=== PATIENT | female | born 2000 | race African-American/Black ===

== ENCOUNTER 2022-12-04 08:23 | Inpatient (IN) | payer OTHER, SELFPAY ==
[2022-12-04] VITALS (19 sets, daily range): BP systolic 61–123; BP diastolic 35–94; PULSE 76–106; RESP 18; TEMP 36.2–36.9; O2SAT 100
[2022-12-04 09:38] LABS: Basophils Absolute Auto 0.1 K/mm3 (0.0-0.1); Basophils Percent Auto 0.5 % (0.2-1.2); Eosinophils Absolute Auto 0.1 K/mm3 (0-0.3); Eosinophils Percent Auto 0.5 % (0-4.4); Hematocrit 33.9 % (37.0-47.0); Hemoglobin 10.9 g/dL (12.0-15.0); Immature Granulocyte Absolute 0.09 K/mm3 (0.00-0.031); Immature Granulocyte Percent A 0.5 % (0-0.5); Lymphocytes Absolute Auto 1.97 K/mm3 (0.9-3.2); Lymphocytes Percent Auto 11.6 % (18.3-44.2); Mean Corpuscular HGB Conc 32.2 g/dl (32-36); Mean Corpuscular Hemoglobin 30.8 pg (26-34); Mean Corpuscular Volume 95.8 fl (80-100); Mean Platelet Volume 10.8 fl (7.4-10.4); Monocytes Absolute Auto 0.8 K/mm3 (0.1-0.6); Monocytes Percent Auto 4.9 % (2.6-8.5); Neutrophils Absolute Auto 13.9 K/mm3 (1.3-6.7); Platelet Count Result 252 k/mm3 (150-375); Red Blood Count 3.54 M/mm3 (4.2-5.4)
--- NOTE | 2022-12-04 10:07 | LDADM ---
This patient, Opal Zeng, was admitted to Labor/Delivery/Recovery 104 on 12/04/22 at 08:23. Plans for labor, pain management and were discussed with patient. Patient/family oriented to hospital policies and general routines including ID bracelet, bed and alarms, visiting hours, pain management, procedures, bathroom and other care routines, personal items, smoking policy, room service/diet and guest tray routines, infant security routines, and visiting hours. Patient/Family are encouraged to report perceived risks to care and to ask questions if they do not understand what they are told or what they should do. See OBIX for further documentation.
--- NOTE | 2022-12-04 11:52 | WPDHPUPDATE1 ---
History and Physical Update Update Date/Time: 12/04/22 11:52 22 yo G1 at 38w6d who presents in labor. Pt also reports some leakage of fluid. She reports good movement History and Physical has been reviewed, including an updated exam of the patient. There are NO changes in the patient's condition. Risks, benefits, and alternatives have been discussed and questions answered. Patient agrees to proceed with procedure. A/P: 22 yo at 38w6d who presents in labor admit to L&D routine admission orders Rh + GBS neg FHT cat 1 regular contractions cvx 4-5 cm expectant management
--- NOTE | 2022-12-04 11:56 | PM.OBPNLAB ---
Pain Control Date/time seen: 12/04/22 11:56 Pain control: tolerating well Pelvic Exam Dilation (cm): 6 Effacement (%): 70 station: -2 Amniotic membrane status: Ruptured Comments: meconium stained fluid Contractions Contraction frequency: 5 Status status: Category l Assessment and Plan Assessment: active labor Plan: continuous present management
[2022-12-04] MEDS: OXYTOCIN 30 UNITS/NS 500 ML 30 UNITS/500 ML BAG IV CONT (16:00)
[2022-12-04] MEDS: LACTATED RINGERS 1,000 ML 125 ML IV CONT (16:00)
[2022-12-04 16:51] LABS: Rapid Plasma Reagin Non-Reactive (NonReactive)
[2022-12-04] MEDS: ONDANSETRON INJ 4 MG/2 ML VIAL IV PUSH (17:08)
--- NOTE | 2022-12-04 18:45 | PM.OBPRVD ---
OB - Delivery Note Procedure Procedure: Patient pushed for a spontaneous vaginal delivery. The fetus was delivered atraumatically and placed on the maternal abdomen. The cord was clamped and cut after 1 minute of life. The cord was double clamped and cut and a segment of cord was collected for cord gases. Cord blood was collected for blood type and Coomb's testing. The placenta delivered spontaneously and was noted to be intact. The perineum was inspected and there were no lacerations noted. The uterus was firm and good hemostasis was noted. The patient and fetus were stable in the delivery room. Induction method: None Delivery augmentation: Rupture of Membranes Delivery monitor: External FHT Route of delivery: Episiotomy description: None Laceration Description: None Specimen: No Quantitative Blood Loss (ml): 200 Anesthesia type: None Disposition: Floor () Complications: No immediate complications Baby Date of : 12/04/22 Time of : 18:35 Weeks of gestation at delivery: 38 Infant gender: Male Weight (pounds): 6 Weight (ounces): 12 presentation: vertex position: Right Occiput Anterior Placenta delivery description: Spontaneous Cord Vessel Description: 3 Vessels score one minute: 8 score five minutes: 9 AMG Delivery Billing Delivery Delivery: Delivery Charge
[2022-12-04] MEDS: OXYTOCIN 10 UNITS/ML VIAL (18:52)
[2022-12-04] MEDS: OXYTOCIN 10 UNITS/ML VIAL 20 UNITS (18:52)
--- NOTE | 2022-12-04 19:27 | PC.NURSE ---
IV Pitocin not given. IV infiltrated. Orders to give IM Pitocin and to gold restarting IV for now.
[2022-12-04] MEDS: WITCH HAZEL 40 PADS 1 PAD TOPICAL (20:47)
[2022-12-04] MEDS: BENZOCAINE 20% AER SPR (*SP) 56 GM CAN 1 SPRAY TOPICAL (20:47)
--- NOTE | 2022-12-04 21:10 | PC.NURSE ---
Patient transferred to post room #285 via ( W/C ). Support person present. Oriented to unit, room, information board, rooming in, admission packet and security measures. Patient verbalizes understanding.
[2022-12-05] VITALS (7 sets, daily range): BP systolic 99–113; BP diastolic 55–65; PULSE 82–93; RESP 16–18; TEMP 36.7–37.1; O2SAT 99–100
[2022-12-05 06:01] LABS: Hematocrit 32.3 % (37.0-47.0); Hemoglobin 10.2 g/dL (12.0-15.0)
[2022-12-05] MEDS: MULTIVIT/MIN/PREN/FOL AC/IRON TABLET 1 TAB PO (10:59)
--- NOTE | 2022-12-05 11:15 | P.PNOB_ITS ---
OB - PN: Subj Subjective Date/time seen: 12/05/22 11:15 Patient comments: no complaints, pain well controlled and tolerating diet [place] feeding status: exclusively breast feeding Narrative: patient doing well this AM. No complaints. Pain is well controlled. She reports minimal bleeding. She is ambulating and voiding without difficulty. She does report some coccyx pain. She is tolerating PO. She denies N/V, fever, chills. OB - PN: Obj Data Labs 12/05/22 04:53 Labs: Laboratory Results - last 24 hr 12/04/22 12/04/22 12/05/22 09:18 09:18 04:53 Hgb 10.2 L Hct 32.3 L RPR Non-reactive PIERO, IgG Interpret Not Performed PIERO, Poly Interpret Negative OB - PN A/P Plan day: 1 Plan: routine care Comments: patient doing well H/H stable plan for infant circumcision today. Risks, benefits, alternatives discuss. pt consented. continue routine care Time Spent With Patient Time: Total time spent is greater than 50% in coordination of care (as documented) at patient's floor/unit and/or counseling patient: Time with patient: less than 15 minutes Review of Systems Review of Systems: All systems reviewed & are unremarkable except as noted in HPI and below Exam Const: General: comfortable and no acute distress Resp: Effort & Inspection: normal respiratory effort Cardio: Rate: regular rate GI: GI Palp: Yes Soft to palpation and No Tenderness to palpation present (GI) Auscultation: normal bowel sounds Other: fundus firm and below umbilicus. Psych: Affect: normal affect
--- NOTE | 2022-12-05 15:53 | PC.NURSE ---
[id number] Introductions were made, then consulted with patient to assess needs related to . Mother led the conversation with her?plans to feed?her infant and the?experience so far. Resources provided for inpatient and outpatient services with the mom/baby guide. Mother voiced understanding of information and received offer for assistance. Mother works well with her infant with encouragement and education. Encouraged understanding of the benefits of skin to skin (demonstrating unwrapping infant and placing upright on her chest), stimulating with massage touch, changing positions to encourage wakefulness, how to watch for early feeding cues, responsive feeding, feeding on demand (aiming for 8-12 times in 24 hours, about every 2-3 hours), milk production, building/maintaining a milk supply, duration of feeding, signs of adequate intake/output and how to record on the feeding sheet. Reviewed positioning and ear, shoulder, hip alignment, supporting the breast to facilitate a deep latch, asymmetrical latch (off-center), leading with the chin with a big, open, wide gape and body close to mother. latched optimally to the left breast in [football/cross cradle/laid-back] position. Education given to mother of how to visualize suck/swallow ratios and listen for drinking at the breast. Infant was [able/unable] to maintain latch without discomfort to mother. Nipple care reviewed with optimal latch and good positioning. Reminding mother of comfort measures of healing with a warm and wet washcloth to rinse breast, then leave open to air-dry as needed. Reviewed good handwashing when or touching the breast/nipples to prevent infection. After 15 minutes infant detached from the breast and was placed skin to skin. Once feed cues were visualize infant was latched optimally to the right breast and effectively breastfed with mother denying pain and voiced visualizing and hearing swallowing. Resources used to facilitate learning were used with the tool, mom and baby guide. Mother voiced understanding of skin to skin, stimulating with massage touch, responsive feedings, hand expressed colostrum, talking to infant to encourage if it has been 2 -2.5 hours since the start of the last , to call if infant does not latch, or if there is discomfort with . Resources provided for inpatient/outpatient the mom/baby guide. Parents voiced understanding of information, demonstrated learning and will call if there is a request for assistance. Reported to the primary RN. [id number] Purposefully rounded to consult with needs. Mother had skin to skin. Once feeding cues were visualized infant was optimally latched to the right breast using football positioning with minimal assistance from RN. Mother denied any discomfort. Good suck/swallow ratios were heard and visualized. Mother voiced understanding of skin to skin, stimulating with massage touch, responsive feedings, hand expressed colostrum, talking to infant to encourage if it has been 2 -2.5 hours since the start of the last , to call if infant does not latch, or if there is discomfort with . Reported to the Primary RN.
--- NOTE | 2022-12-05 17:39 | PC.NURSE ---
Pt was given Motrin at 1059; RN discovered pill on floor at 1220; pill was wasted. New Motrin was pulled at 1220 and taken to pt. RN discovered at 1730 that pt never took pill; RN wasted pill in [facility].
--- NOTE | 2022-12-06 07:05 | PC.NURSE ---
Patient to view the discharge video Mother & Baby Care, The First Two Weeks online. Patient was given the opportunity and encouraged to ask questions. Patient verbalized understanding of information shared and has been given the mother/baby guide for home reference.
--- NOTE | 2022-12-06 07:11 | PM.OBDSVD ---
DS: Admitting Diagnosis Discharge Date 12/06/22 Admitting Diagnosis intrauterine at term DS: Discharge Diagnosis Discharge Diagnosis (1) Supervision of high risk , unspecified, third trimester: Code(s): O09.93 - Supervision of high risk , unspecified, third trimester Status: Acute OB - DS: Summary OB Procedures : None OB Procedures Intrapartum: Spontaneous Vag Delivery OB Procedures: : None Peripartum Data Delivery Method: Natural Vaginal Laceration Description: None complications: none Status at Discharge Functional status at discharge: independent ambulation Overall status at discharge: patient is back to baseline Time Spent with Patient Time attestation: Total time spent providing and/or coordinating discharge services: Time spent: Less than 30 minutes Exam Const: General: comfortable and no acute distress Resp: Effort & Inspection: normal respiratory effort Auscultation: clear to auscultation bilaterally Cardio: Rate: regular rate GI: GI Palp: Yes Soft to palpation Auscultation: normal bowel sounds Other: Fundus firm below umbilicus Psych: Appearance: grossly normal Mental Status: mental status grossly normal Affect: normal affect Discharge Plan Discharge Discharging Clinician: Michael Hawkins Patient Disposition: Home, Self-Care Activity: as tolerated and pelvic rest Diet: regular Patient Instructions: Antibiotic Form, Vaginal Delivery (DC) Stand Alone Forms: General Discharge Information Follow-up/Referrals: Michael Hawkins MD [Physician] - Discharge Medications: New acetaminophen [Mapap (acetaminophen)] 325 mg Tablet 650 mg PO Q6H PRN (Reason: Mild Pain (1-3) Or Headache) Qty: 30 0RF ibuprofen 600 mg Tablet 600 mg PO Q6H PRN (Reason: Cramping) Qty: 30 0RF Continued vit-iron fum-folic ac 65 mg iron- 1 mg tablet 1 tablet PO DAILY Date of admission: 12/04/22 08:23 Primary Care Provider: UNKNOWN,DOCTOR Admitting Provider: Michael Hawkins Attending physician on admission: Michael Hawkins Condition: Stable
[2022-12-06 07:30] VITALS: BP 94/69; PULSE 71; RESP 16; TEMP 36.8; O2SAT 99
[2022-12-06] MEDS: MULTIVIT/MIN/PREN/FOL AC/IRON TABLET 1 TAB PO (10:43)
[2022-12-06] MEDS: DOCUSATE SODIUM 100 MG CAPSULE PO (10:44)
== END 2022-12-06 16:13 | disposition home or self-care (01) | DRG 560 ==
LOC: ANHLDR 09:16 → ANHOB2 21:29
PROVIDERS: Admitting Provider Student in an Organized Health Care Education/Training Program; Visit Provider Student in an Organized Health Care Education/Training Program
DX: O77.0 Labor and delivery complicated by meconium in amniotic fluid (principal); Z37.0 Single live birth; Z3A.38 38 weeks gestation of pregnancy
CPT/HCPCS: 36415; 84112; 85014; 85018; 85025; 86592; 86850; 86870; 86880; 86900; 86901; 86902; 86971; A9270; J2405; J2590; J7120